=== PATIENT | male | born 1955 | race Caucasian/White ===

== ENCOUNTER 2016-11-10 16:46 | Emergency (ER) | payer BC ==
[2016-11-10 17:28] LABS: #Basophils 0.1 thou/uL (0.0-0.2); #Eosinphils 0.5 thou/uL (0.0-0.7); #Lymphocytes 2.3 thou/uL (1.20-3.40); #Monocytes 0.7 thou/uL (0.11-0.59); #Neutrophils 4.5 thou/uL (1.40-6.50); %Basophils 1.2 % (0.0-1.0); %Eosinophils 6.3 % (0.0-10.0); %Lymphocytes 27.8 % (21.0-51.0); %Monocytes 8.7 % (0.0-10.0); ALT (SGPT) 13 U/L (0-55); AST (SGOT) 18 U/L (5-34); Alkaline Phosphatase 45 U/L (40-150); Anion Gap 16 mmol/L (10-20); BUN (Urea Nitrogen) 29 mg/dL (8.4-25.7); Bilirubin, Total 0.4 mg/dL (0.2-1.2); Calc. Creatinine Clearance 0 mL/min (70-130); Calcium 9.3 mg/dL (7.8-10.44); Carbon Dioxide 23 mmol/L (23-31); Chloride 109 mmol/L (98-107); Estimated GFR-MDRD Greater than 90; Globulin 3.3 g/dL (2.4-3.5); Glucose 104 mg/dL (80-115); Hemoglobin 13.9 g/dL (14.0-18.0); Mean Corpuscular HGB CONC 32.9 g/dL (32.0-36.0); Mean Corpuscular Volume 91.2 fl (80.0-94.0); Mean Platelet Volume 7.9 fL (7.4-10.4); Platelet Count 230 thou/uL (130-400); Potassium 3.9 mmol/L (3.5-5.1); Protein, Total 7.3 g/dL (5.8-8.1); RBC Distribution Width 13.6 % (11.5-14.5); Red Blood Cell (RBC) Count 4.62 mill/uL (4.70-6.10); Sodium 144 mmol/L (136-145); White Blood Cell (WBC) Count 8.1 thou/uL (4.8-10.8)
[2016-11-10 17:30] LABS: CKMB 0.6 ng/mL (0-6.6); Troponin I Less than 0.010 ng/mL (< 0.028)
--- NOTE | 2016-11-10 23:22 | RAD ---
PORTABLE AP CHEST X-RAY 11/10/16 HISTORY: Chest pain and shortness of breath for three days. COMPARISON: 10/05/14. There is stable elevation of the lateral right hemidiaphragm likely related to pleural and parenchym al scarring at the right lung base. The lungs are otherwise clear. The cardiac silhouette and pulmon jerry vasculature are within normal limits. There has been no interval change from the prior exam. IMPRESSION: 1. No acute cardiopulmonary process. 2. Chronic pleural and parenchymal scarring at the right lung base. POS: ADA
== END 2016-11-10 18:41 | disposition short-term general hospital (02) ==
LOC: BURERS 16:46
DX: R07.9 Chest pain, unspecified (principal); E03.9 Hypothyroidism, unspecified; K21.9 Gastro-esophageal reflux disease without esophagitis; I10 Essential (primary) hypertension; J45.909 Unspecified asthma, uncomplicated; F32.9 Major depressive disorder, single episode, unspecified; Z79.899 Other long term (current) drug therapy
CPT/HCPCS: 71010; 80053; 82553; 84484; 85025; 85379; 93005